=== PATIENT | male | born 1990 | race Caucasian/White ===

== ENCOUNTER 2019-08-10 11:36 | Emergency (ER) | payer MEDICARE, MEDICAID ==
[2019-08-10 11:48] VITALS: BP 133/102
--- NOTE | 2019-08-10 12:23 | ED Physician Documentation ---
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 denies: Dyspnea GI: denies: Abdominal Pain, Nausea, Vomiting : denies: Dysuria, Frequency PD PAST MEDICAL HISTORY - Past Medical History Psych: ADD/ADHD, Other Other Past Medical History: ocd. fragile X syndrome - Past Surgical History HEENT: Myringotomy (tubes), Tonsil/Adenoidectomy - Present Medications Home Medications: Ambulatory Orders Medication Instructions Recorded Confirmed Azithromycin [Zithromax] 250 mg PO DAILY #6 tablet 08/10/19 - Allergies Allergies/Adverse Reactions: Allergies Allergy/AdvReac Type Severity Reaction Status Date / Time diazepam [From Valium] AdvReac Hallucinati Verified 08/10/19 11:42 ons - Social History Does the pt smoke?: No Smoking Status: Never smoker PD ED PE NORMAL - Vitals Vital signs reviewed: Yes (hypertensive ) - General General: No acute distress, Well developed/nourished - HEENT HEENT: Atraumatic, PERRL, EOMI - Neck Neck: Supple, no meningeal sign - Cardiac Cardiac: RRR, No murmur - Respiratory Respiratory: No respiratory distress, Other (rohnchi in the right upper lobe) - Back Back: No CVA TTP, No spinal TTP - Derm Derm: Normal color, Warm and dry, No rash - Extremities Extremities: No deformity, No edema - Neuro Neuro: technical advisor 2-12 intact, No motor deficit, No sensory deficit Eye Opening: Spontaneous Motor: Obeys Commands Verbal: Confused GCS Score: 14 Results - Vitals Vitals: Vital Signs - 24 hr 08/10/19 11:43 Temperature 36.5 C Heart Rate 79 Respiratory 17 Rate Blood Pressure 133/102 H O2 Saturation 100 Oxygen O2 Source Room air - Rads (name of study) chest Radiology: Prelim report reviewed (Impression: Small focal patchy opacity in the medial left lower lung zone concerning for focal infiltrate, pneumonia versus atelectasis; recommend chest x-ray of 2 views follow-up in 4 to 5 weeks.), EMP read indepedently, See rad report PD MEDICAL DECISION MAKING - ED course Complexity details: reviewed results, re-evaluated patient, considered differential, d/w patient, d/w family ED course: 28-year-old develop mentally delayed male is developed a cough after having surgery on his teeth. He was intubated at the time and he has now developed cough. He does not appear particularly ill and he is administered oral antibiot ic. Departure - Departure Disposition: 01 Home, Self Care Clinical Impression: Bronchitis after surgery Condition: Stable Instructions: ED Upper Resp Infec Abx Tx Follow-Up: Your, doctor [Other] Prescriptions: Azithromycin [Zithromax] 250 mg PO DAILY #6 tablet Discharge Date/Time: 08/10/19 13:08
--- NOTE | 2019-08-10 12:55 | XRAY Report ---
Reason: cough soa Procedure Date: 08/10/2019 Accession Number: [id number] / [id number] Procedure: XR - Chest 2 View X-Ray CPT Code: 10789 FULL RESULT: EXAM: CHEST RADIOGRAPHY EXAM DATE: 08/10/2019 12:33 PM. CLINICAL HISTORY: Cough, shortness of air. COMPARISON: None. TECHNIQUE: 2 views. FINDINGS: Lungs/Pleura: There is shallow inspiration effort during imaging. Focal mild opacity in the medial left lung base is seen. No pleural effusion. No pneumothorax. Normal volumes. Mediastinum: Heart and mediastinal contours are unremarkable. Other: None. IMPRESSION: Small focal patchy opacity in the medial left lower lung zone, concerning for focal infiltrate, pneumonia versus atelectasis; recommend chest x-ray of 2 views follow-up in four to five weeks. [facility]
== END 2019-08-10 13:08 | disposition home or self-care (01) ==
LOC: ED 11:36
DX: J40 Bronchitis, not specified as acute or chronic (principal); Z98.818 Other dental procedure status
CPT/HCPCS: 71046; 99283